=== PATIENT | male | born 1985 | race Caucasian/White ===

== ENCOUNTER 2017-12-09 00:02 | Emergency (ER) | payer BC ==
[2017-12-09] MEDS ORDERED: Tetracaine HCl/PF 0.5% 4 ML Bottle ONE (00:25)
[2017-12-09] MEDS ORDERED: Balanced Salt Solution Ophth Irrig 30 ML Bottle ONE (00:25)
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
== END 2017-12-09 00:59 | disposition home or self-care (01) ==
LOC: LL.ED 00:02
DX: T15.92XA Foreign body on external eye, part unspecified, left eye, initial encounter (principal); H10.32 Unspecified acute conjunctivitis, left eye
CPT/HCPCS: 99283; A9270-GY

== ENCOUNTER 2020-05-26 02:06 | Emergency (ER) | payer BC ==
[2020-05-26 02:39] LABS: CHLORIDE,CL 103 mmol/L (98-107); SODIUM,NA 139 mmol/L (136-145)
--- NOTE | 2020-05-26 03:05 | EDM.PDOC ---
ED HPI GENERAL MEDICAL PROBLEM - General Chief Complaint: General Stated Complaint: Syncope Time Seen by Provider: 05/26/20 02:28 Source of Information: Reports: Patient History Limitations: Reports: No Limitations - History of Present Illness INITIAL COMMENTS - FREE TEXT/NARRATIVE: Brought in via EMS s/p syncopal episode. Got up from bed to urinate, first stopping by child to pull up bed covers. Passed out while standing up and woke up on floor. heard him fall. He regained consciousness quickly. Does not remember the actual fall. Now complains of 4/10 headache. No specific sore spot on head/denies neck pain but would have likely hit hit some part of bathroom during syncopal fall. Normal day for patient the day before. No recent change in health/no recent illness. Has not passed out like this before. No other complaints at this time. Head Pain Score (Numeric/FACES): 4 - Related Data Allergies Allergy/AdvReac Type Severity Reaction Status Date / Time No Known Allergies Allergy Verified 12/09/17 00:08 Home Meds: Home Meds . [No Known Home Meds] 12/09/17 [History] Past Medical History HEENT History: Reports: Impaired Vision, Other (See Below) Other HEENT History: Patient wears glasses Musculoskeletal History: Reports: Fracture Neurological History: Reports: Headaches, Chronic, Migraines - Past Surgical History HEENT Surgical History: Reports: Oral Surgery GI Surgical History: Reports: Hernia, Inguinal Social & Family History - Tobacco Use Tobacco Use Status *Q: Never Tobacco User Second Hand Smoke Exposure: No - Caffeine Use Caffeine Use: Reports: Coffee - Recreational Drug Use Recreational Drug Use: No - Living Situation & Occupation Living situation: Reports: Occupation: Employed ([employer]) ED ROS GENERAL - Review of Systems Review Of Systems: Comprehensive ROS is negative, except as noted in HPI. ED EXAM, GENERAL - Physical Exam Exam: See Below Exam Limited By: No Limitations General Appearance: Alert, WD/WN, No Apparent Distress Eye Exam: Bilateral Eye: EOMI, PERRL Ears: Hearing Grossly Normal Nose: No: Nasal Deformity, Nasal Swelling, Nasal Drainage Throat/Mouth: Normal Lips, Normal Teeth, Normal Voice, No Airway Compromise Head: Atraumatic, Normocephalic, Other (No areas of bruising/tenderness/swelling on scalp). No: Facial Swelling, Facial Tenderness, Sinus Tenderness Neck: Normal Inspection, Supple, Non-Tender, Full Range of Motion Respiratory/Chest: No Respiratory Distress, Lungs Clear, Normal Breath Sounds, No Accessory Muscle Use Cardiovascular: Regular Rate, Rhythm, No Murmur GI/Abdominal: Soft, Non-Tender, No Distention (Male) Exam: Deferred Rectal (Males) Exam: Deferred Back Exam: No: CVA Tenderness (L), CVA Tenderness (R), Muscle Spasm Extremities: Normal Inspection, Normal Range of Motion, Non-Tender, No Pedal Edema, Normal Capillary Refill Neurological: Alert, Oriented, CN II-XII Intact, Normal Cognition, Normal Gait, No Motor/Sensory Deficits Psychiatric: Normal Affect, Normal Mood Skin Exam: Warm, Dry, Intact, Normal Color. No: Ecchymosis #1 Interpretation EKG Date: 05/26/20 Time: 02:55 Rhythm: NSR Rate (Beats/Min): 63 [place]: Normal P-Wave: Present QRS: Normal ST-T: Normal QT: Normal Comparison: NA - No Prior EKG Course - Vital Signs Last Recorded V/S: Last Vital Signs Temp 36.8 C 05/26/20 02:12 Pulse 70 05/26/20 02:12 Resp 12 05/26/20 02:12 BP 141/75 H 05/26/20 02:12 Pulse Ox 100 05/26/20 02:12 - Orders/Labs/Meds Labs: Laboratory Tests 05/26/20 05/26/20 Range/Units 02:17 02:17 WBC 5.6 (4.0-10.2) K/uL RBC 4.90 (4.33-5.41) M/uL Hgb 15.0 (13.1-16.8) g/dL Hct 43.6 (39.0-49.0) % MCV 89.0 (84.0-98.0) fL MCH 30.6 (28.2-33.3) pg MCHC 34.4 (31.7-36.0) g/dL RDW 12.1 (11.2-14.1) % Plt Count 253 (150-350) K/uL Neut % (Auto) 44.1 L (45.0-80.0) % Lymph % (Auto) 42.6 (10.0-50.0) % [place] % (Auto) 7.7 (2.0-14.0) % Eos % (Auto) 5.2 H (0.0-5.0) % Baso % (Auto) 0.4 (0.0-2.0) % Neut # (Auto) 2.47 (1.40-7.00) K/uL Lymph # (Auto) 2.38 (0.50-3.50) K/uL [place] # (Auto) 0.43 (0.00-1.00) K/uL Eos # (Auto) 0.29 (0.00-0.50) K/uL Baso # (Auto) 0.02 (0.00-0.20) K/uL Sodium 139 (136-145) mmol/L Potassium 3.7 (3.5-5.1) mmol/L Chloride 103 (98-107) mmol/L Carbon Dioxide 28.7 (21.0-32.0) mmol/L BUN 15 (7-18) mg/dL Creatinine 1.23 H (0.51-1.17) mg/dL Est Cr Clr Drug Dosing 75.64 mL/min Estimated GFR (MDRD) > 60 mL/min Glucose 104 (74-106) mg/dL Calcium 8.5 (8.5-10.1) mg/dL Total Bilirubin 0.6 (0.2-1.0) mg/dL AST 25 (15-37) U/L ALT 63 (12-78) U/L Alkaline Phosphatase 67 (46-116) IU/L Total Protein 7.0 (6.4-8.2) g/dL Albumin 3.9 (3.4-5.0) g/dL - Re-Assessments/Exams Free Text/Narrative Re-Assessment/Exam: 05/26/20 03:13 No specific trigger for syncopal episode identified. Does not appear to be consistent with seizure as no post-ictal period after incident. Suspect vaso- vagal event as etiology. However, cannot rule out other possible cause such as arrhythmia/seizure/etc. Exam nonfocal. EKG/Labs unremarkable. No criteria at this time for CT of head. Patient neurologically intact and no symptoms of TBI/concussion noted at present. Reassurance given to patient. Differential as well as precautions reviewed. He is aware to observe for any other changes over the weekend and return to the ER if signs of concussion or other concerns develop. He is also aware that additional testing such as EEG/imaging/Holter may be needed if he has additional episodes. Departure - Departure Time of Disposition: 03:05 Disposition: Home, Self-Care 01 Condition: Good Clinical Impression: Episode of syncope Qualifiers: Syncope type: unspecified Qualified Code(s): R55 - Syncope and collapse - Discharge Information *PRESCRIPTION DRUG MONITORING PROGRAM REVIEWED*: Not Applicable *COPY OF PRESCRIPTION DRUG MONITORING REPORT IN PATIENT GRETCHEN: Not Applicable Instructions: Syncope Referrals: Jose Manuel Can PA [Primary Care Provider] - Forms: ED Department Discharge Additional Instructions: Watch for changes/any other new symptoms that may help explain why you passed out tonight. Take it easy over the weekend. If have additional episodes then further evaluation will be needed as discussed in the ER. Call if you have any questions. Sepsis Event Note (ED) - Evaluation Sepsis Screening Result: No Definite Risk - Focused Exam Vital Signs: Vital Signs Temp Pulse Resp BP Pulse Ox 05/26/20 02:12 36.8 C 70 12 141/75 H 100
== END 2020-05-26 03:15 | disposition home or self-care (01) ==
LOC: LL.ED 02:06
DX: R55 Syncope and collapse (principal)
CPT/HCPCS: 36415; 80053; 85025; 93005; 93010; 99283; 99284-25

== ENCOUNTER 2021-04-04 06:36 | Emergency (ER) | payer BC, OTHER, SELFPAY ==
[2021-04-04] MEDS ORDERED: Sodium Chloride 0.9% 10 ML Syringe FLUSH PRN (07:43)
[2021-04-04] MEDS ORDERED: Metoclopramide 10 MG/2 ML SDV IVPUSH ONE (07:43)
[2021-04-04] MEDS ORDERED: diphenhydrAMINE 50 MG/ML SDV IVPUSH ONE (07:43)
[2021-04-04] MEDS ORDERED: Lactated Ringers 1,000 ML IV ONE (07:44)
[2021-04-04 07:45] LABS: ANION GAP 16.9 meq/L (7-15); CHLORIDE,CL 107 mmol/L (98-107); SODIUM,NA 143 mmol/L (136-145)
--- NOTE | 2021-04-04 07:51 | EDM.PDOC ---
ED HPI GENERAL MEDICAL PROBLEM - General Chief Complaint: General Stated Complaint: DIZZINESS Time Seen by Provider: 04/04/21 07:36 Source of Information: Reports: Patient - History of Present Illness INITIAL COMMENTS - FREE TEXT/NARRATIVE: Eddie is a 35 y/o male who comes to the ER this AM after he was severely dizzy upon waking. He was fine when he went to bed last night, but he reprots as soon as he rolled over to turn off his alarm this AM, he felt dizzy in bed. It has just continued and he it gets worse when he moves. He is quite nauseated with it. Has not vomited. No vision changes. He was COVID+ on 03-16-2021, but has completely recovered. No unusual activity recently. - Related Data Allergies Allergy/AdvReac Type Severity Reaction Status Date / Time No Known Allergies Allergy Verified 04/04/21 06:43 Home Meds: Home Meds Albuterol [Ventolin HFA] 2 puff INH Q4H PRN 04/04/21 [History] Levothyroxine [Synthroid] 50 mcg PO ACBREAKFAST 04/04/21 [History] Past Medical History HEENT History: Reports: Impaired Vision, Other (See Below) Other HEENT History: Patient wears glasses Musculoskeletal History: Reports: Fracture Neurological History: Reports: Headaches, Chronic, Migraines Endocrine/Metabolic History: Reports: Hypothyroidism - Past Surgical History HEENT Surgical History: Reports: Oral Surgery GI Surgical History: Reports: Hernia, Inguinal Social & Family History - Tobacco Use Tobacco Use Status *Q: Never Tobacco User Second Hand Smoke Exposure: No - Caffeine Use Caffeine Use: Reports: None - Recreational Drug Use Recreational Drug Use: No - Living Situation & Occupation Living situation: Reports: Occupation: Employed ([employer]) ED ROS GENERAL - Review of Systems Review Of Systems: See Below Constitutional: Reports: No Symptoms HEENT: Reports: No Symptoms Respiratory: Reports: No Symptoms Cardiovascular: Reports: No Symptoms Endocrine: Reports: No Symptoms GI/Abdominal: Reports: Nausea : Reports: No Symptoms Musculoskeletal: Reports: No Symptoms Skin: Reports: No Symptoms Neurological: Reports: Dizziness Psychiatric: Reports: No Symptoms Hematologic/Lymphatic: Reports: No Symptoms Immunologic: Reports: No Symptoms ED EXAM, GENERAL - Physical Exam Exam: See Below General Appearance: Alert, WD/WN, No Apparent Distress (Adult male, sittign quietly in chair.) Eye Exam: Right Eye: Nystagmus (right gazing), Bilateral Eye: PERRL Ears: Normal External Exam, Normal Canal, Hearing Grossly Normal, Normal TMs Nose: Normal Inspection, Normal Mucosa Throat/Mouth: Normal Inspection, Normal Lips, Normal Oropharynx, Normal Voice, No Airway Compromise Head: Atraumatic, Normocephalic Neck: Normal Inspection, Supple Respiratory/Chest: No Respiratory Distress, Lungs Clear Cardiovascular: Normal Peripheral Pulses, Regular Rate, Rhythm, No Murmur GI/Abdominal: Normal Bowel Sounds, Soft, Non-Tender (Male) Exam: Deferred Rectal (Males) Exam: Deferred Back Exam: Normal Inspection Extremities: Normal Inspection, Normal Range of Motion, No Pedal Edema, Normal Capillary Refill Neurological: Alert, Oriented, CN II-XII Intact, Normal Cognition Psychiatric: Normal Affect, Normal Mood Skin Exam: Warm, Dry, Intact, Normal Color Course - Vital Signs Text/Narrative:: 0706 The patient was seen by the DOLLYMAN. Labs ordered. Orthostatic Vitals noted and negative. 0810 PT able to see pt for Gregg Maneuver. Will have him FU with PT as an outpatient on Thursday if sx persist. 0900 Drowsy now after meds. Labs reviewed. Differential favor Vertigo. Will discharge to home, written instructions were given and he left the ER in stable condition. Last Recorded V/S: Last Vital Signs Temp 36.5 C 04/04/21 06:47 Pulse 84 04/04/21 06:47 Resp 15 04/04/21 06:47 BP 123/74 04/04/21 06:47 Pulse Ox 99 04/04/21 06:47 Orthostatic Blood Pressure [ 127/83 Standing] Orthostatic Blood Pressure [ 119/62 Sitting] Orthostatic Blood Pressure [ 115/72 Supine] - Orders/Labs/Meds Orders: Active Orders 24 hr Category Date Time Status Blood Glucose Check, Bedside [RC] ONETIME Care 04/04/21 07:00 Active Cardiac Education [RC] Click to Edit Care 04/04/21 07:13 Active PT Evaluation and Treatment [CONS] Routine Cons 04/04/21 07:45 Active Sodium Chloride 0.9% [Saline Flush] Med 04/04/21 07:43 Active 10 ml FLUSH ASDIRECTED PRN Saline Lock Insert [OM.PC] Stat Oth 04/04/21 07:43 Ordered Medication Orders Sodium Chloride (Sodium Chloride 0.9% 10 Ml Syringe) 10 ml FLUSH ASDIRECTED PRN PRN Reason: Keep Vein Open Last Admin: 04/04/21 07:59 Dose: 10 ml Documented by: PALMER Labs: Laboratory Tests 04/04/21 04/04/21 04/04/21 Range/Units 06:39 07:02 07:04 WBC 7.6 (4.0-10.2) K/uL RBC 4.87 (4.33-5.41) M/uL Hgb 14.8 (13.1-16.8) g/dL Hct 43.1 (39.0-49.0) % MCV 88.5 (84.0-98.0) fL MCH 30.4 (28.2-33.3) pg MCHC 34.3 (31.7-36.0) g/dL RDW 12.4 (11.2-14.1) % Plt Count 409 H D (150-350) K/uL Neut % (Auto) 62.6 (45.0-80.0) % Lymph % (Auto) 25.2 (10.0-50.0) % [place] % (Auto) 9.7 (2.0-14.0) % Eos % (Auto) 2.2 (0.0-5.0) % Baso % (Auto) 0.3 (0.0-2.0) % Neut # (Auto) 4.76 (1.40-7.00) K/uL Lymph # (Auto) 1.92 (0.50-3.50) K/uL [place] # (Auto) 0.74 (0.00-1.00) K/uL Eos # (Auto) 0.17 (0.00-0.50) K/uL Baso # (Auto) 0.02 (0.00-0.20) K/uL Sodium 143 (136-145) mmol/L Potassium 3.5 (3.5-5.1) mmol/L Chloride 107 (98-107) mmol/L Carbon Dioxide 22.6 (21.0-32.0) mmol/L Anion Gap 16.9 H (7-15) meq/L BUN 20 H (7-18) mg/dL Creatinine 1.07 (0.51-1.17) mg/dL Est Cr Clr Drug Dosing TNP Estimated GFR (MDRD) > 60 mL/min Glucose 99 (70-99) mg/dL POC Glucose 99 (70-99) mg/dL Calcium 8.2 L (8.5-10.1) mg/dL Magnesium 1.7 L (1.8-2.4) mg/dL Meds: Medications Generic Name Dose Route Start Last Admin Trade Name Freq PRN Reason Stop Dose Admin Sodium Chloride 10 ml 04/04/21 07:43 04/04/21 07:59 Sodium Chloride 0.9% 10 Ml Syringe FLUSH 10 ml ASDIRECTED PRN Administration Keep Vein Open Discontinued Medications Generic Name Dose Route Start Last Admin Trade Name Freq PRN Reason Stop Dose Admin Diphenhydramine HCl 50 mg 04/04/21 07:43 04/04/21 07:59 Diphenhydramine 50 Mg/Ml Sdv IVPUSH 04/04/21 07:44 50 mg ONETIME ONE Administration Lactated Ringer's 1,000 mls @ 999 mls/hr 04/04/21 07:44 04/04/21 07:53 Ringers, Lactated IV 04/04/21 08:44 999 mls/hr .BOLUS ONE Administration Metoclopramide HCl 10 mg 04/04/21 07:43 04/04/21 07:59 Metoclopramide 10 Mg/2 Ml Sdv IVPUSH 04/04/21 07:44 10 mg ONETIME ONE Administration Departure - Departure Time of Disposition: 09:01 Disposition: Home, Self-Care 01 Condition: Good Clinical Impression: Vertigo - Discharge Information Referrals: Jose Manuel Can PA [Primary Care Provider] - Physical Therapy,Template [Physical Therapist] - Forms: ED Department Discharge Additional Instructions: -Rest -Stay well hydrated -Physical Therapy follow up appt if needed, if symptoms are persisting -Return as needed for other concerns or see your PCP Sepsis Event Note (ED) - Evaluation Sepsis Screening Result: No Definite Risk - Focused Exam Vital Signs: Vital Signs Temp Pulse Resp BP Pulse Ox 04/04/21 06:47 36.5 C 84 15 123/74 99 - Problem List & Annotations (1) Vertigo SNOMED Code(s): 172024813 Code(s): R42 - DIZZINESS AND GIDDINESS Status: Acute Current Visit: Yes Annotation/Comment:: PT treatment done in ER, will write order for OP PT if needed. Stay well hydrated. Rest as needed. - Problem List Review Problem List Initiated/Reviewed/Updated: Yes - My Orders Last 24 Hours: My Active Orders 04/04/21 07:00 Blood Glucose Check, Bedside [RC] ONETIME 04/04/21 07:13 Cardiac Education [RC] Click to Edit 04/04/21 07:43 Sodium Chloride 0.9% [Saline Flush] 10 ml FLUSH ASDIRECTED PRN Saline Lock Insert [OM.PC] Stat 04/04/21 07:45 PT Evaluation and Treatment [CONS] Routine - Assessment/Plan Last 24 Hours: My Active Orders 04/04/21 07:00 Blood Glucose Check, Bedside [RC] ONETIME 04/04/21 07:13 Cardiac Education [RC] Click to Edit 04/04/21 07:43 Sodium Chloride 0.9% [Saline Flush] 10 ml FLUSH ASDIRECTED PRN Saline Lock Insert [OM.PC] Stat 04/04/21 07:45 PT Evaluation and Treatment [CONS] Routine Plan: See Above
== END 2021-04-04 09:27 | disposition home or self-care (01) ==
LOC: LL.ED 06:36
DX: R42 Dizziness and giddiness (principal); E03.9 Hypothyroidism, unspecified; Z79.899 Other long term (current) drug therapy
CPT/HCPCS: 36415; 80048; 82947; 83735; 85025; 96374; 96375; 99283-25; J1200; J2765; J7120

== ENCOUNTER 2021-04-11 10:39 | Emergency (ER) | payer BC ==
--- NOTE | 2021-04-11 11:44 | EDM.PDOC ---
ED HPI GENERAL MEDICAL PROBLEM - General Chief Complaint: Respiratory Problem Stated Complaint: SOB Time Seen by Provider: 04/11/21 11:10 Source of Information: Reports: Patient History Limitations: Reports: No Limitations - History of Present Illness INITIAL COMMENTS - FREE TEXT/NARRATIVE: Pt. presents to ER with complaints of cough, chest tightness, shortness of breath, lightheadedness, and [place]STE[place] since having covid. he was diagnosed was off quarantine approx. . He has been symptomatic since then, and is concerned it isn't getting better. He states that he was at work today and really was unable to perform his job due to continued dyspnea on exertion. Pt. denies any fever or chills. No nausea, vomiting, or diarrhea. Pt. was recently seen in ER with complaints of vertigo. He was seen in the ER for this. He was given IV fluids and medications for vertigo and followed up with PT which he states helped those symptoms. He reports no continued vertigo at this time. He denies any history of chronic lung disease, such as asthma, COPD, etc. No history of cardiac disease/CHF in the past. Pt. has not had his covid vaccination. Onset Date: 03/30/21 Location: Reports: Chest, Generalized Improves with: Reports: Rest Worsens with: Reports: Movement Associated Symptoms: Reports: Shortness of Breath - Related Data Allergies Allergy/AdvReac Type Severity Reaction Status Date / Time No Known Allergies Allergy Verified 04/04/21 06:43 Home Meds: Home Meds Albuterol [Ventolin HFA] 2 puff INH Q4H PRN 04/04/21 [History] Levothyroxine [Synthroid] 50 mcg PO ACBREAKFAST 04/04/21 [History] Past Medical History HEENT History: Reports: Impaired Vision, Other (See Below) Other HEENT History: Patient wears glasses Musculoskeletal History: Reports: Fracture Neurological History: Reports: Headaches, Chronic, Migraines Endocrine/Metabolic History: Reports: Hypothyroidism - Past Surgical History HEENT Surgical History: Reports: Oral Surgery GI Surgical History: Reports: Hernia, Inguinal Social & Family History - Caffeine Use Caffeine Use: Reports: None - Living Situation & Occupation Living situation: Reports: Occupation: Employed ([employer]) ED ROS GENERAL - Review of Systems Review Of Systems: See Below Constitutional: Reports: Malaise, Fatigue. Denies: Diaphoresis HEENT: Reports: No Symptoms Respiratory: Reports: Shortness of Breath, Wheezing, Pleuritic Chest Pain, Cough. Denies: Hemoptysis Cardiovascular: Reports: No Symptoms Endocrine: Reports: No Symptoms GI/Abdominal: Reports: No Symptoms : Reports: No Symptoms Musculoskeletal: Reports: No Symptoms Skin: Reports: No Symptoms Neurological: Reports: No Symptoms Psychiatric: Reports: No Symptoms Hematologic/Lymphatic: Reports: No Symptoms Immunologic: Reports: No Symptoms ED EXAM, GENERAL - Physical Exam Exam: See Below Exam Limited By: No Limitations General Appearance: Alert, WD/WN, No Apparent Distress Throat/Mouth: Normal Voice, No Airway Compromise Head: Atraumatic, Normocephalic Neck: Normal Inspection, Supple, Non-Tender, Full Range of Motion Respiratory/Chest: No Respiratory Distress, Lungs Clear, Normal Breath Sounds, No Accessory Muscle Use, Chest Non-Tender Cardiovascular: Normal Peripheral Pulses, Regular Rate, Rhythm, No Edema, No JVD GI/Abdominal: Soft, Non-Tender, No Organomegaly, No Distention, No Mass (Male) Exam: Deferred Rectal (Males) Exam: Deferred Back Exam: Normal Inspection, Full Range of Motion Extremities: Normal Inspection, Normal Range of Motion, No Pedal Edema, Normal Capillary Refill Neurological: Alert, Oriented, CN II-XII Intact, Normal Cognition, No Motor/Sensory Deficits Psychiatric: Normal Affect, Normal Mood Skin Exam: Warm, Dry, Intact, Normal Color, No Rash Lymphatic: No Adenopathy #1 Interpretation Rhythm: NSR [place]: Normal P-Wave: Present QRS: Normal ST-T: Normal QT: Normal Course - Vital Signs Last Recorded V/S: Last Vital Signs Temp 36.7 C 04/11/21 11:10 Pulse 96 04/11/21 11:10 Resp 20 04/11/21 11:10 BP 124/71 04/11/21 11:10 Pulse Ox 98 04/11/21 11:10 - Orders/Labs/Meds Orders: Active Orders 24 hr Category Date Time Status EKG Documentation Completion [RC] ASDIRECTED Care 04/11/21 11:13 Active EKG Documentation Completion [RC] STAT Care 04/11/21 11:11 Active Chest 1V Frontal [CR] Stat Exams 04/11/21 11:11 Taken Labs: Laboratory Tests 04/11/21 04/11/21 04/11/21 Range/Units 11:20 11:20 11:20 WBC 6.3 (4.0-10.2) K/uL RBC 4.93 (4.33-5.41) M/uL Hgb 15.1 (13.1-16.8) g/dL Hct 43.2 (39.0-49.0) % MCV 87.6 (84.0-98.0) fL MCH 30.6 (28.2-33.3) pg MCHC 35.0 (31.7-36.0) g/dL RDW 12.4 (11.2-14.1) % Plt Count 299 D (150-350) K/uL Neut % (Auto) 67.2 (45.0-80.0) % Lymph % (Auto) 21.7 (10.0-50.0) % [place] % (Auto) 8.6 (2.0-14.0) % Eos % (Auto) 1.9 (0.0-5.0) % Baso % (Auto) 0.6 (0.0-2.0) % Neut # (Auto) 4.24 (1.40-7.00) K/uL Lymph # (Auto) 1.37 (0.50-3.50) K/uL [place] # (Auto) 0.54 (0.00-1.00) K/uL Eos # (Auto) 0.12 (0.00-0.50) K/uL Baso # (Auto) 0.04 (0.00-0.20) K/uL PT 10.8 (9.5-12.0) SEC INR 1.1 APTT (24.5-32.8) SEC D-Dimer, Quantitative < 100 (0-400) ng/mL Sodium (136-145) mmol/L Potassium (3.5-5.1) mmol/L Chloride (98-107) mmol/L Carbon Dioxide (21.0-32.0) mmol/L Anion Gap (7-15) meq/L BUN (7-18) mg/dL Creatinine (0.51-1.17) mg/dL Est Cr Clr Drug Dosing Estimated GFR (MDRD) mL/min Glucose (70-99) mg/dL Calcium (8.5-10.1) mg/dL Total Bilirubin (0.2-1.0) mg/dL AST (15-37) U/L ALT (12-78) U/L Alkaline Phosphatase (46-116) IU/L Troponin I High Sens (<=76) ng/L C-Reactive Protein (<=0.9) mg/dL Total Protein (6.4-8.2) g/dL Albumin (3.4-5.0) g/dL 04/11/21 04/11/21 Range/Units 11:20 11:20 WBC (4.0-10.2) K/uL RBC (4.33-5.41) M/uL Hgb (13.1-16.8) g/dL Hct (39.0-49.0) % MCV (84.0-98.0) fL MCH (28.2-33.3) pg MCHC (31.7-36.0) g/dL RDW (11.2-14.1) % Plt Count (150-350) K/uL Neut % (Auto) (45.0-80.0) % Lymph % (Auto) (10.0-50.0) % [place] % (Auto) (2.0-14.0) % Eos % (Auto) (0.0-5.0) % Baso % (Auto) (0.0-2.0) % Neut # (Auto) (1.40-7.00) K/uL Lymph # (Auto) (0.50-3.50) K/uL [place] # (Auto) (0.00-1.00) K/uL Eos # (Auto) (0.00-0.50) K/uL Baso # (Auto) (0.00-0.20) K/uL PT (9.5-12.0) SEC INR APTT 25.5 (24.5-32.8) SEC D-Dimer, Quantitative (0-400) ng/mL Sodium 141 (136-145) mmol/L Potassium 4.1 (3.5-5.1) mmol/L Chloride 104 (98-107) mmol/L Carbon Dioxide 26.8 (21.0-32.0) mmol/L Anion Gap 10.2 (7-15) meq/L BUN 13 (7-18) mg/dL Creatinine 1.19 H (0.51-1.17) mg/dL Est Cr Clr Drug Dosing TNP Estimated GFR (MDRD) > 60 mL/min Glucose 108 H (70-99) mg/dL Calcium 9.5 (8.5-10.1) mg/dL Total Bilirubin 0.8 (0.2-1.0) mg/dL AST 57 H (15-37) U/L ALT 248 H (12-78) U/L Alkaline Phosphatase 75 (46-116) IU/L Troponin I High Sens 4 (<=76) ng/L C-Reactive Protein < 0.1 (<=0.9) mg/dL Total Protein 7.3 (6.4-8.2) g/dL Albumin 4.1 (3.4-5.0) g/dL - Radiology Interpretation Free Text/Narrative:: increased opacification throughout, consistent with recent covid pneumonia Departure - Departure Time of Disposition: 12:30 Disposition: Home, Self-Care 01 Clinical Impression: Post-COVID chronic dyspnea - Discharge Information Referrals: Jose Manuel Can PA [Primary Care Provider] - Forms: ED Department Discharge Additional Instructions: Home to rest. Please excuse from work 04/11/2021 and 04/12/2021 due to illness. Prednisone 20mg 2 tabs daily for 6 days Continue using your inhaler as needed as well. Recheck in clinic in 10-14 days if not gradually improving. Sepsis Event Note (ED) - Evaluation Sepsis Screening Result: No Definite Risk - Focused Exam Vital Signs: Vital Signs Temp Pulse Resp BP Pulse Ox 04/11/21 11:10 36.7 C 96 20 124/71 98 - Problem List Review Problem List Initiated/Reviewed/Updated: Yes - My Orders Last 24 Hours: My Active Orders 04/11/21 11:11 EKG Documentation Completion [RC] STAT Chest 1V Frontal [CR] Stat 04/11/21 11:13 EKG Documentation Completion [RC] ASDIRECTED - Assessment/Plan Last 24 Hours: My Active Orders 04/11/21 11:11 EKG Documentation Completion [RC] STAT Chest 1V Frontal [CR] Stat 04/11/21 11:13 EKG Documentation Completion [RC] ASDIRECTED Plan: Home to rest. Please excuse from work 04/11/2021 and 04/12/2021 due to illness. Prednisone 20mg 2 tabs daily for 6 days Continue using your inhaler as needed as well. Recheck in clinic in 10-14 days if not gradually improving.
[2021-04-11 11:55] LABS: ANION GAP 10.2 meq/L (7-15); CHLORIDE,CL 104 mmol/L (98-107); SODIUM,NA 141 mmol/L (136-145)
== END 2021-04-11 12:30 | disposition home or self-care (01) ==
LOC: LL.ED 10:39
DX: R06.00 Dyspnea, unspecified (principal); U09.9 Post COVID-19 condition, unspecified; E03.9 Hypothyroidism, unspecified
CPT/HCPCS: 36415; 71045; 80053; 84484; 85025; 85379; 85610; 85730; 86140; 93005; 93010; 99283; 99285-25